=== PATIENT | male | born 1960 | race Caucasian/White ===

== ENCOUNTER 2018-11-08 13:35 | Emergency (ER) | payer OTHER ==
[2018-11-08] MEDS ORDERED: LIDOCAINE 2% JELLY 30 ML TUBE TOP ONE (13:40)
[2018-11-08 13:46] VITALS: BP 131/88
--- NOTE | 2018-11-08 16:17 | ER Document Report ---
HPI - HPI Time Seen by Provider: 11/08/18 14:22 Pain Level: 3 Notes: Patient is a 57-year-old male presenting to the emergency department presenting to the emergency department with foreign body in his left ear. Patient reports he was walking through his yard when something flew into his ear just prior to arrival. He denies any other symptoms. - CONSTITUTIONAL Constitutional: DENIES: Fever, Chills - EENT EENT: REPORTS: Ear Pain - left ear. DENIES: Sore Throat, Eye problems - NEURO Neurology: DENIES: Headache, Weakness, Vision blurred, Dizzinesss / Vertigo - CARDIOVASCULAR Cardiovascular: DENIES: Chest pain - RESPIRATORY Respiratory: DENIES: Trouble Breathing, Coughing - GASTROINTESTINAL Gastrointestinal: DENIES: Abdominal Pain, Black / Bloody Stools - URINARY Urinary: DENIES: Dysuria, Urgency, Frequency - MUSCULOSKELETAL Musculoskeletal: DENIES: Extremity pain Past Medical History - General Information source: Patient - Social History Smoking Status: Former Smoker Chew tobacco use (# tins/day): No Frequency of alcohol use: Occasional Drug Abuse: None Family History: Reviewed & Not Pertinent Patient has suicidal ideation: No Patient has homicidal ideation: No Endocrine Medical History: Reports: Hx Diabetes Mellitus Type 2 Renal/ Medical History: Denies: Hx Peritoneal Dialysis Past Surgical History: Reports: Hx Orthopedic Surgery Vertical Provider Document - CONSTITUTIONAL Notes: PHYSICAL EXAMINATION: GENERAL: Well-appearing, well-nourished and in no acute distress. HEAD: Atraumatic, normocephalic. EYES: Pupils equal round extraocular movements intact, conjunctiva are normal. ENT: Nares patent, foreign body to left ear canal consistent with cockroach. NECK: Normal range of motion LUNGS: No respiratory distress Musculoskeletal: Normal range of motion NEUROLOGICAL: Normal speech, normal gait. PSYCH: Normal mood, normal affect. SKIN: Warm, Dry, normal turgor, no rashes or lesions noted. - INFECTION CONTROL TRAVEL OUTSIDE OF THE [place] IN LAST 30 DAYS: No Course - Re-evaluation Re-evalutation: At the time of my initial evaluation nursing staff at already placed lidocaine into the left ear canal. Multiple attempts were made to remove the insect unsuccessfully. The insect is not moving at this time. Will refer patient to ear nose and throat specialty. - Vital Signs Vital signs: Temp Pulse Resp BP Pulse Ox 97.8 F 138 H 24 H 131/88 H 96 11/08/18 13:45 11/08/18 13:45 11/08/18 13:45 11/08/18 13:45 11/08/18 13:45 Discharge - Discharge Clinical Impression: Foreign body in left ear Qualifiers: Encounter type: initial encounter Qualified Code(s): T16.2XXA - Foreign body in left ear, initial encounter Condition: Stable Disposition: HOME, SELF-CARE Additional Instructions: Foreign Object in the Ear, Not Removed Examination showed a foreign body in the ear. This can cause pain, swelling, infection, and decreased hearing. The foreign object must be removed promptly. We were unable to remove it today. We are referring you to a specialist to have the foreign body removed. Call us if you aren't able to be seen as scheduled. Usually no further treatment is necessary following removal. If infection is already present, you may receive a prescription for antibiotic drops. If hearing is not normal after removal of the foreign object, or if an obvious injury to the eardrum was seen, another checkup with the specialist will be necessary. If there is continued drainage, continued earache, fever, headache, or hearing loss, you should return for further care. Please call Dr. Isaac to schedule an appointment. Let them know you are seen in the emergency department and have a retained foreign body in your ear that we were unable to remove. Referrals: OSWALDO ISAAC, [ASSOCIATE] - Follow up as needed
== END 2018-11-08 16:26 | disposition home or self-care (01) ==
LOC: ER 13:35
DX: T16.2XXA Foreign body in left ear, initial encounter (principal); H92.02 Otalgia, left ear; X58.XXXA Exposure to other specified factors, initial encounter; Z87.891 Personal history of nicotine dependence; E11.9 Type 2 diabetes mellitus without complications
CPT/HCPCS: 99283